=== PATIENT | female | born 1985 | race Caucasian/White ===

== ENCOUNTER 2017-04-08 18:49 | Emergency (ER) | payer OTHER ==
[~2017-04-08] VITALS: Ht 157.5 cm; Wt 50.0 kg
[2017-04-08 18:52] VITALS: BP 116/76
--- NOTE | 2017-04-08 19:10 | NUR ---
Patient being evaluated by MANDAEISM at bedside.
--- NOTE | 2017-04-08 19:10 | NUR ---
31/F BIB FAMILY C/O LT THUMB LACERATION x 20 MINUTES AGO. PT STATES SHE WAS CUTTING VEGETABLES AND ACCIDENTALLY CUT HER FINGER. BLEEDING UNDER CONTROL AT THIS TIME. AAO X4, AMBULATORY WITH STEADY GAIT. SKIN WARM AND DRY, CUT WOUND TO LT. THUMB, NO ACTIVE BLEEDING. VSS, NO S/SX OF DISTRESS AT THIS TIME. ER MD MADE AWARE OF PT. STATUS.
--- NOTE | 2017-04-08 19:40 | NUR ---
Patient discharged with v/s stable. Written and verbal after care instructions given and explained. Patient alert, oriented and verbalized understanding of instructions. Ambulatory with steady gait. All questions addressed prior to discharge. ID band removed. Patient advised to follow up with PMD. Rx of BACTROBAN 2%, MOTRIN 800 MG given. Patient educated on indication of medication including possible reaction and side effects. Opportunity to ask questions provided and answered.
[2017-04-08 20:41] VITALS: BP 116/76
== END 2017-04-08 19:40 | disposition home or self-care (01) ==
LOC: MED 18:49
DX: S61.012A Laceration without foreign body of left thumb without damage to nail, initial encounter (principal); W45.8XXA Other foreign body or object entering through skin, initial encounter; Y93.G1 Activity, food preparation and clean up; Y92.89 Other specified places as the place of occurrence of the external cause; Y99.8 Other external cause status
CPT/HCPCS: 90715; 99283